=== PATIENT | male | born 1990 | race Two or more races ===

== ENCOUNTER 2025-07-08 17:51 | Emergency (ER) | payer MEDICAID ==
[~2025-07-08] VITALS: Ht 170.2 cm; Wt 86.0 kg
[2025-07-08 17:54] VITALS: O2SAT 95
[2025-07-08] MEDS ORDERED: ACETAMINOPHEN 325MG TABLET PO ONE (19:15)
[2025-07-08] MEDS ORDERED: NAPR220C61 MT (20:03)
[2025-07-08] MEDS ORDERED: TETANUS, DIPHTHERIA, PERTUSSIS VAC/PF 0.5ML (>10YR OLD) IM ONE (20:30)
[2025-07-08 21:00] VITALS: BP 124/100; PULSE 108; RESP 18; TEMP 37; O2SAT 95
== END 2025-07-08 21:11 | disposition home or self-care (01) ==
LOC: ER 17:51
DX: S05.12XA Contusion of eyeball and orbital tissues, left eye, initial encounter (principal); S01.511A Laceration without foreign body of lip, initial encounter; G89.11 Acute pain due to trauma; Y04.0XXA Assault by unarmed brawl or fight, initial encounter; Y93.89 Activity, other specified; Y92.89 Other specified places as the place of occurrence of the external cause; Y99.8 Other external cause status
CPT/HCPCS: 70486; 99284